=== PATIENT | female | born 1975 | race Caucasian/White ===

== ENCOUNTER 2016-11-18 16:53 | Observation (INO) | payer OTHER ==
[~2016-11-18] VITALS: Ht 147.3 cm; Wt 55.8 kg
[2016-11-18 17:00] VITALS: BP 124/78; PULSE 88; RESP 16; O2SAT 100
--- NOTE | 2016-11-18 18:03 | ED.REPORT ---
HPI-General Illness Date of Service Nov 18, 2016 ED Provider: Lobo Aponte MD A 40 year old female presents to the ED complaining of a headache that became increasingly worse a few days ago. Patient had a Brain MRI taken earlier today at [facility] and was sent here for an MRA after radiology discovered a dissected carotid artery. She took one Aspirin earlier this evening with no relief and is currently complaining of a headache. Patient reports that approx. 1 month ago she had an episode of left sided facial droop, dysphasia and left sided numbness that lasted 5 minutes. 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 Following the episode, she began to experience fatigue, lightheadedness, dizziness and constant daily headaches. Nursing Notes Stated Complaint: MRI Chief Complaint: Neuro Symptoms/ Deficits Nursing Notes Reviewed: Yes Allergies: Coded Allergies: Penicillins (Unverified Allergy, Unknown, 11/18/16) Uncoded Allergies: PENICILLIN (Allergy, Unknown, 11/18/16) Scheduled PRN Alprazolam (Alprazolam) 0.5 Mg Tablet 0.5 MG PO BID PRN PRN For Anxiety Clonazepam (Clonazepam) 1 Mg Tablet 1 MG PO BID PRN PRN For Anxiety General Time Seen by MD: 18:00 Chief Complaint Headache Hx Obtained From: Patient Arrived By: Walk-in Sudden in Onset?: No Onset Occurred: 3 days ago Symptom Duration: Since onset Location: : Head Quality: Aching Severity: Current: Moderate Severity: Maximum: Moderate Associated with: Reports: Dizziness, Headache, Numb extremities, Weakness Pertinent Negative: Pt denies other symptoms Recent Healthcare: Recent doctor visit, Recent hospitalization Past Medical History Past Medical History Notes: PCP: Marco Antonio CARLIN brunilda KEARNEY Past Medical History None reported. Past Surgical History Reports: Hysterectomy Family History Reports: Coronary artery disease, Diabetes mellitus, Hypertension, Denies: Stroke Reports: Cancer Smoking History Never Smoker Social History Other Social History: Good social support, Ambulatory Status Independent Review of Systems Full Review of Systems Constitutional: Reports: Fatigue, Denies: Chills, Fever Respiratory: Denies: Shortness of breath Cardiovascular: Denies: Chest pain GI: Denies: Abdominal pain, Nausea, Vomiting Neurologic: Reports: Dizziness, Headache, Lightheaded, Numbness, Unable to speak (During episode 1 month prior ), Weakness (left sided droop 1 month ago ) , Denies: Change LOC Complete sys rev & neg: except as marked. Physical Exam Vital Signs Vital Signs Date Time Temp Pulse Resp B/P Pulse Ox O2 Delivery O2 Flow Rate FiO2 11/18/16 17:00 36.1 88 16 124/78 100 Room Air Initial VS: Reviewed Skin: Warm, Dry, No cyanosis Neurologic: Alert, Oriented, Nonfocal Psychiatric: Mood/affect normal, Behavior normal, Normal thought content General/Constitutional: Awake, Alert Head / Eyes: Atraumatic, Normocephalic, PERRL, EOMI HEAD/EYES: Subtle left sided facial droop with forehead involved Neck: Atraumatic, Supple, No carotid bruit Respiratory / Chest: Atraumatic, Breath sounds NL, Breath sounds = bilat Cardiovascular: Heart rate NL, Regular rhythm, Heart sounds NL, No gallop, No murmurs, No rubs Abdomen: Atraumatic Upper Extremities Upper Extremity / MS: Atraumatic, Neurologic intact, Vascular intact Lower Extremity / Pelvis / MS: Atraumatic, Neurologic intact, Vascular intact Interpretation & Diagnostics MRI BRAIN w/o contrast [facility] 11/18/16 0900 IMPRESSION: 1. Circumferential but eccentric T1 hyperintense hematoma along the visualized distal cervical left ICA with significant (at least 50-60%) narrowing of the left ICA flow-void compatible with recent acute/subacute dissection of the distal left ICA. 2. No acute infarct, intracranial hemorrhage, midline shift or hydrocephalus. Dissection does not appear to extend into the petrosal segment of the left ICA. 3. 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 Please also refer to the cervical MR angiography study obtained today showing the extent of the dissection on the left tracking inferiorly almost to the origin of the left internal carotid artery at the bifurcation. Dictated by: Uziel Yao M.D. on 11/18/2016 at 20:54 Approved by: Uziel Yao M.D. on 11/18/2016 at 20:54 ADDENDUM: Findings discussed personally with Dr. Aponte immediately upon completion of the report above. Of interest, the high cervical maximal left internal carotid artery diameter is 8 mm where as the normal appearing high cervical right internal carotid artery is 5 mm. This is due to, presumably, adventitial expansion on the left due to the dissection, with the false and true channel combined. At the same axial level when comparing the normal true channel on the right with the diminutive true channel containing flowing blood on the left there is at least a 67% reduction in caliber on the left. Dictated by: Uziel Yao M.D. on 11/18/2016 at 21:07 Lab Results Interpretation Result Diagram: 11/18/16 1830 Test 11/18/16 18:30 Sodium Level 142mEq/L (134-144) Potassium Level 4.3mEq/L (3.5-5.2) Chloride Level 105mEq/L (97-108) Carbon Dioxide Level 18mmol/L (18-29) Blood Urea Nitrogen 14mg/dL (6-20) Creatinine 0.60mg/dL (0.57-1.00) Estimat Glomerular Filtration Rate 160mL/min (>59) Glucose Level 85mg/dL (60-99) Calcium Level 9.7mg/dL (8.5-10.1) Total Bilirubin 0.2mg/dL (0.0-1.2) Aspartate Amino Transf (AST/SGOT) 24U/L (0-50) Alanine Aminotransferase (ALT/SGPT) 19U/L (0-32) Alkaline Phosphatase 65U/L (25-150) Total Protein 7.7g/dL (6.4-8.4) Albumin 3.8g/dL (3.4-5.0) Re-Eval/Medical Decision Med Decision/Clinical Course 40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 Imaging done earlier today at an outside facility suggested a left internal carotid artery dissection. This is confirmed by imaging here. The patient has had aspirin. I discussed with [facility] neurosurgery and with Dr. Santiago Robertson of neurology here. We will admit her here for observation tonight and neurology consultation in the morning. Aspirin is been started. Time of Eval: 21:05 Patient Status: Condition improved Re-Evaluation/Progress Note: Patient is rechecked. She is informed of her lab results, MRI results and diagnosis. All of the patient's questions are addressed. She agrees with plan to transfer. Time of Eval: 21:49 Patient Status: Condition improved Re-Evaluation/Progress Note: Patient is rechecked. She is informed of the updated treatment plan to admit to [facility]. Patient is able to see her MRI results. All of the patient's questions are addressed. Consultation #1: Referral / Consult Name: Uziel Yao MD Consulted With: Neurology Call Returned at: 18:36 Trader: Will see patient, Agrees with eval, Agrees with plan Note: Recommends head/neck angio Consultation #2: Consulted With: Hospitalist Call Returned at: 21:20 Trader: Agrees with plan Note: [facility] will call-back Consultation #3: Referral / Consult Name: Yusuf JAIN JR., MD Consulted With: Neurology Call Returned at: 21:22 Trader: Will see patient, Agrees with eval, Agrees with plan Note: [place] Dr. Krishna Jain Recommends Aspirin and observation under neurology Consultation #4: Referral / Consult Name: Santiago Robertson MD Consulted With: Neurology Call Returned at: 21:34 Trader: Will see patient, Agrees with eval, Agrees with plan Note: Agrees to consult Consultation #5: Referral / Consult Name: Myriam Soto MD Consulted With: Hospitalist Call Returned at: 22:34 Trader: Will see patient, Agrees with eval, Agrees with plan, Accepts admit Counseled Regarding: Diagnosis, Lab results, Need for admission Discharge & Departure Primary Impression: Dissection of carotid artery Disposition: ADMITTED TO HOSPITAL Discharge Condition All VS Reviewed: Yes Condition: Stable Referrals: Marco Antonio Barriga Attestation Portions of this note were transcribed by Shanice Ellsworth. I, Dr. Aponte personally performed the history, physical exam and medical decision-making; I reviewed and confirmed the accuracy of the information in the transcribed note. Signed by: Shanice Ellsworth, 11/18/16, 2245. copies to: Marco Antonio Barriga Donald L MD Nov 18, 2016 18:03 SHANICE ELLSWORTH Nov 18, 2016 18:16
[2016-11-18] MEDS ORDERED: ALPRAZolam 0.5 mg Tablet PO ONE (19:00)
--- NOTE | 2016-11-18 20:55 | DRSVH ---
PROCEDURE: MRA ANGIOGRAM HEAD WITHOUT CONTRAST ([id number]) INDICATIONS: ? L ICA dissection TECHNIQUE: Noncontrast axial 3-D [id number] MR angiogram, with 3-dimensional maximum intensity projection (M IP) reformats of the internal carotid arteries and posterior circulation then performed. COMPARISON: None. FINDINGS: Image quality: Excellent. Anterior circulation: Right sided internal carotid arteries demonstrate normal size and intraluminal flow signal. In contrast, high cervical and skull base intracranial left internal carotid artery is highly stenosed with an eccentric elevated MR signal surrounding the flowing channel of high signal blood within the internal carotid artery in appearance characteristic of dissection and mild aneurysm al dilatation of the thrombosed false channel. The petrous portion of the internal carotid on the le ft contains a linear filling defect that likely is a extension of the dissection towards the midline. The flow within the paired anterior cerebral arteries is normal and symmetric. The flow within the m iddle cerebral arteries is normal and symmetric. The anterior communicating artery is seen. No sten oses, occlusions, or aneurysms. Posterior circulation: Visualized portions of the vertebral arteries demonstrate normal caliber, and join to form a normal appearing basilar artery. The flow within the posterior cerebral arteries is normal and symmetric. No stenoses, occlusions, or aneurysms. IMPRESSION: A left high cervical and skull base intracranial internal carotid artery dissection appe ars present, with mild aneurysmal dilatation of the [place] vessel with an appearance of thrombosed he morrhage within the false channel and maintenance of flow within the constraints of the constricted t rue channel, including extension of dissection filling defect within the petrous portion of the left internal carotid artery. Please also refer to the cervical MR angiography study obtained today showing the extent of the disse ction on the left tracking inferiorly almost to the origin of the left internal carotid artery at the bifurcation. Dictated by: Uziel Yao M.D. on 11/18/2016 at 20:54 Approved by: Uziel Yao M.D. on 11/18/2016 at 20:54
--- NOTE | 2016-11-18 21:26 | DRSVH ---
PROCEDURE: MRA ANGIOGRAM NECK WITH AND WITHOUT CONTRAST ([id number]) INDICATIONS: ? L ICA dissection. Intracranial MR angiogram also obtained approximately at the same time as this study has documented a definite left internal carotid dissection. That information was immediately discussed with the ordering emergency room physician caring for the patient. TECHNIQUE: Axial and sagittal TruFISP through the neck. Coronal dynamic MRA after the administration of contras t in the arterial and venous phases, with rotating 3-dimensional maximum intensity projection (MIP) r eformats constructed from subtraction images . COMPARISON: [facility], MR, MR ANGIO HEAD WO CON, 11/18/2016, 19:28. NOTE: Dr. Aponte of the emergency room staff has been informed of the presence of the cervical and sk ul base left internal carotid artery dissection at time of this dictation. Please also refer to the intracranial MR angiogram report from that examination, complimentary to this study. FINDINGS: Image quality: Excellent. Carotid system: Great vessels demonstrate a conventional anatomy as they arise from the aortic arch. The origins of the common carotid arteries appear normal. The calibers and courses of the common c arotid arteries are likewise normal. The carotid bifurcations appear normal bilaterally. The right internal carotid artery is widely patent up to the [place]. In contrast, the left internal carotid artery appears focally mildly stenosis approximately 2 cm abov e its origin and then tapers to a smaller caliber with minimal diameter measured at 2-3 mm. This con trasts with approximately 5-6 mm in diameter at the normal appearing right internal carotid artery at the same area. The left internal carotid artery is patent through this narrowed region, but surroun ded by a high T1 signal on axial T1 imaging, characteristic of blood products in this clinical circum stance. The caliber of the dissected left internal carotid artery measures up to 8 mm, due to aneury smal dilatation of the dissected portion of the vessel. The false channel containing blood products measures up to 4-5 mm in maximal thickness. The true channel is displaced posteriorly. This dissect ion extends cephalad through the high cervical portion of the internal carotid artery and extends int o the skull base. Posterior circulation: The origins of the vertebral arteries are unremarkable. The more superior po rtions of the vertebral arteries demonstrate normal course and caliber. Vertebral arteries join to f orm a normal appearing basilar artery. Miscellaneous: Subclavian arteries are patent throughout. Pre-contrast images through the neck demo nstrate no soft tissue abnormalities. IMPRESSION: Left internal carotid artery dissection which has a craniocaudad length of approximately a 5.6 cm, originating only approximately 2 cm above the carotid bifurcation and tracking cephalad in to the skull base course of the internal carotid (features portion). As noted, there is aneurysmal d ilatation measuring up to 8 mm of the internal carotid artery on the left, and the presumed true reed norma is diminutive but patent through the course of the abnormal portion of this vessel. There is no sign of aneurysm leak, or embolus at this time. No adjacent inflammatory process is seen that would suggest presence of mycotic pseudoaneurysm as the underlying cause. No additional abnormality elsewhere is found. These findings were discussed in detail personally with Dr. Aponte, the emergency room physician [place] for the patient. He has immediately contacted [facility] for consultation. The estimate of stenosis included in the report of the imaging study was calculated using the NASCET method Dictated by: Uziel Yao M.D. on 11/18/2016 at 21:25 Approved by: Uziel Yao M.D. on 11/18/2016 at 21:25
[2016-11-18] MEDS ORDERED: Ondansetron 2 mg/mL 2 mL Inj IVPUSH PRN (23:20)
[2016-11-18] MEDS ORDERED: Polyethylene Glycol (PEG) 17 Gm Powder PO PRN (23:20)
[2016-11-18] MEDS ORDERED: Alum-Mag Hydrox-Simeth 30 mL Suspension PO PRN (23:20)
[2016-11-18 23:51] VITALS: BP 110/76; PULSE 84; RESP 18; O2SAT 98
[2016-11-18 23:58] LABS: INR 0.95 ratio
[2016-11-19] MEDS ORDERED: ALPR0.5T8 PO (01:01)
[2016-11-19] MEDS ORDERED: KLO1T PO (01:01)
--- NOTE | 2016-11-19 01:10 | PCM.HPMED ---
Subjective Date of Service Nov 18, 2016 Primary Provider: Admitting Physician: Myriam Soto MD Primary Care Physician: Marco Antonio Barriga Attending Physician: Myriam Soto MD Chief Complaint: Dissection of Left ICA History of Present Illness: A 40 year old female with a history of migraines and anxiety presents to the ED complaining of a headache that became increasingly worse a few days ago. Patient had a Brain MRI earlier today in [place] and was sent here for an MRA after radiology discovered a dissected internal carotid artery. She took one Aspirin earlier this evening with no relief and is currently complaining of a headache. The patient reports that just prior to [place] that she had an episode where she was sitting at the table and acutely lost sensation and motor. During this event she was unable to speak or move but reports that it felt like she had something vibrating under her skin. This episode resolved after 5 minutes, but she still complains of some dysphagia. After [place] she also experienced left sided facial weakness and sensation loss, without sparing of the forehead. 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 She has also experienced a month of constant headache, with new onset fatigue, dizziness, lightheadedness but denies any LOC, slurred or strained speech, vision or hearing changes. Her grandfather had a stroke following ica dissection. Review of Systems: Complete review of symptoms performed. Pertinent positives per HPI; all other systems reviewed and are negative. Allergies Coded Allergies: Penicillins (Unverified Allergy, Unknown, 11/18/16) Uncoded Allergies: PENICILLIN (Allergy, Unknown, 11/18/16) Home Medications Klonopin 0.1 mg PMH Left sided [place] Palsy Migraines Anxiety Surgical History Hysterectomy Family History CAD, DM, HTN, Cancer. Father had RI and quadruple bypass. Grandfather had stroke following a dissection. Social History Hx Alcohol Use: Yes (1-2/month) Hx Substance Use: No Hx Tobacco Use: No Smoking Status: Never Smoker Living Arrangement: with Family Exam Vital Signs Vital Sign - Last Date Time Temp Pulse Resp B/P Pulse Ox O2 Delivery O2 Flow Rate FiO2 11/18/16 17:00 36.1 88 16 124/78 100 Room Air Exam General - Comfortable, sitting upright in bed, NAD HEENT - PEERLA, EOMI. mild left facial droop with mild sensation loss on her left vs right cheek Neck - Supple with full ROM, no tenderness Cardio - RRR, no m/g/r. No carotid bruit appreciated. Distal pulses intact. Lungs - CTA bilaterally, no w/r/r Abd - Soft, NT/ND. +BS. No organomegaly or masses. Extremities - No edema, clubbing, or cyanosis. Skin - no rashes or bruising Psych - Normal affect and responds appropriately. Neuro - A&Ox3. CN 2-12 intact but mild difficulty swallowing. Muscle strength 5/ 5 in all extremities, reflexes normal. Sensation intact through except as noted on face. finger to nose intact; [id number] intact; babinski negative; speech not slurred NIH score of 1 for facial droop Lab and Diagnostics Result Diagram: 11/18/16 1830 X-Rays, CTs and MRIs MRA angiogram neck with and without contrast IMPRESSION: Left internal carotid artery dissection which has a craniocaudad length of approximately a 5.6 cm, originating only approximately 2 cm above the carotid bifurcation and tracking cephalad into the skull base course of the internal carotid (features portion). As noted, there is aneurysmal dilatation measuring up to 8 mm of the internal carotid artery on the left, and the presumed true channel is diminutive but patent through the course of the abnormal portion of this vessel. There is no sign of aneurysm leak, or embolus at this time. No adjacent inflammatory process is seen that would suggest presence of mycotic pseudoaneurysm as the underlying cause. No additional abnormality elsewhere is found. These findings were discussed in detail personally with Dr. Sanchez, the emergency room physician caring for the patient. He has immediately contacted [facility] for consultation. The estimate of stenosis included in the report of the imaging study was calculated using the NASCET method Dictated by: Uziel Yao M.D. 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 Please also refer to the cervical MR angiography study obtained today showing the extent of the dissection on the left tracking inferiorly almost to the origin of the left internal carotid artery at the bifurcation. Dictated by: Uziel Yao M.D. on 11/18/2016 at 20:54 Approved by: Uziel Yao M.D. on 11/18/2016 at 20:54 ADDENDUM: Findings discussed personally with Dr. sanchez immediately upon completion of the report above. Of interest, the high cervical maximal left internal carotid artery diameter is 8 mm where as the normal appearing high cervical right internal carotid artery is 5 mm. This is due to, presumably, adventitial expansion on the left due to the dissection, with the false and true channel combined. At the same axial level when comparing the normal true channel on the right with the diminutive true channel containing flowing blood on the left there is at least a 67% reduction in caliber on the left. Dictated by: Uziel Yao M.D. on 11/18/2016 at 21:07 Assessment & Plan 40 year old female presenting due to headache, recent neurological symptoms, and confirmation of left ICA dissection by MRI and MRA. 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 Robertson and he will see pt tomorrow; requests aspirin daily - Will strictly control blood pressure as needed - Pt kept NPO after 3am until seen by neuro Acute anxiety; present on admission; ongoing - Ativan 0.5 mg IV for anxiety Headache; present on admission; ongoing - Avoid triptans - Tylenol for pain; if needed can use NSAID. - If that fail we will consider opioids, however, very tentatively as we do not want to mask advances in her headache Dispo: Pt admitted for observation pending neuro evaluation at which time a plan for intervention will be more clear Attending Statement I saw Mrs. Barros and examined her. She is discussed with Dr. Phan and my exam findings and plans are as discussed above. Kojo Fay MD, DO Nov 18, 2016 23:27 Myriam Soto MD Nov 19, 2016 03:21
--- NOTE | 2016-11-19 01:53 | NUR ---
Admission Pt arrived to room 3005 alert and orientedx4, pleasant with staff, accompanied by , minor complaints of a head ache. Pt ambulatory and conversing in full sentences. Pt was placed on telemetry and oriented to room, call light, bed and policies. Iv inplace and patent at time of arrival. Pts only symptoms at this time are slight facial asymmetry and droop on the left side of her mouth when she smiles.
[2016-11-19] MEDS ORDERED: ALPRAZolam 0.5 mg Tablet PO PRN (03:20)
[2016-11-19 05:58] VITALS: PULSE 86
[2016-11-19 06:09] VITALS: BP 97/62; PULSE 71; RESP 18; O2SAT 97
[2016-11-19 07:19] LABS: EOSINOPHILS % (AUTO) 4.7 % (0-5); MONOCYTES % (AUTO) 13.5 % (4-12); Mean Corpuscular Hemoglobin 29.5 pg (27.0-35.0); Mean Corpuscular Volume 86.7 fL (81-100); Platelet Count 272 bil/L (150-400)
[2016-11-19] MEDS ORDERED: Influenza (Adult) Vaccine 0.5 mL Syringe IM ONE (08:30)
[2016-11-19 09:20] VITALS: BP 91/59; PULSE 76; RESP 18; O2SAT 97
[2016-11-19 10:23] VITALS: PULSE 75
[2016-11-19 13:20] VITALS: BP 104/71; PULSE 75; RESP 16; O2SAT 99
--- NOTE | 2016-11-19 14:19 | CONS ---
[address] [address] CONSULTATION REPORT PATIENT: AIMEE ZARAGOZA : 1975 MR#: [id number] ADMIT: 11/18/2016 JOB ID: [id number] DATE OF SERVICE: 11/19/2016 NEUROLOGY CONSULTATION: REQUESTING PROVIDER: Lobo Aponte MD CHIEF COMPLAINT: Sudden onset of facial palsy with discovery of a carotid dissection on MRA. The patient is a pleasant 40-year-old right-handed woman with a past medical history of asthma who presents for evaluation after a MRI of her brain revealed evidence of a carotid dissection. She reports that approximately around [place] she experienced a transient episode lasting 5-10 minutes described as a throbbing or humming sensation involving both her upper and lower extremities. She reports never having similar symptoms in the past. She does report that on November 03 she experienced sudden onset of a headache on the left side of her head followed by a facial droop and difficulty closing her left eye tightly. She reports that she was able to elevate her eyebrows and that her forehead appeared symmetrical in terms of wrinkles and furrowing. She was seen at [facility] and diagnosed with facial palsy and placed on acyclovir and steroids. She reports that her symptoms have improved, however, the left-sided headache has not resolved. She has been taking naproxen at home for this. She was given Tylenol for this here at the hospital. Yesterday I was contacted by her primary care provider, Linus after the discovery of this carotid dissection on MRI. The report states that it is a circumferential but eccentric T1 hyperintense intramural hematoma along the visualized distal cervical left internal carotid artery with significant, that is at least 50%-60% narrowing of the left internal carotid artery flow void compatible with recent acute/subacute dissection of the distal left internal carotid artery. No acute infarct was noted. No intracranial hemorrhage was noted. No midline shift was noted. No hydrocephalus was noted. The dissection does not appear to extend into the petrosal segment of the left internal carotid artery. There was a normal examination of the facial nerve canal and the inner ears. It should be noted that the symptoms of facial palsy occurred on the same side, that is on the left side. There is no myosis or anhydrous noted on the examination today. There is trace ptosis of the left eye noted. The patient reports that her symptoms have significantly improved since November 03, 2016. However, the headaches have persisted. She describes them as throbbing and notes photophobia in the left eye and notes that looking to the left worsens her headaches. FAMILY HISTORY: She reports a family history of a maternal grandfather who also had a carotid dissection at a young age. There is no history consistent with a diagnosis of Marfan syndrome or Raisa-Danlos syndrome. However, it is quite possible that she does have a connective tissue disorder. She herself does not have any symptoms suggestive of the classical characteristics associated with these connective tissue disorders such as being tall and lanky and hyper flexible. REVIEW OF SYSTEMS: A complete review of systems was performed and was remarkable for above noted. PAST MEDICAL HISTORY: Of asthma. No significant past surgical history other than a hysterectomy. She does also report a history of anxiety. Reportedly the same maternal grandfather had a stroke following a carotid dissection. SOCIAL HISTORY: She lives with her and children. Never smoked. Does not do drugs. Drinks 1-2 alcoholic drinks a month at maximum. HOME MEDICATIONS: Klonopin 1 mg up to once daily p.r.n. as needed for anxiety. ALLERGIES: She is allergic to PENICILLIN. LABORATORY STUDIES: WBC of 6.8, hemoglobin 13.5, hematocrit 39.7, platelets of 272. Chemistries: Sodium 142, potassium 4.3, chloride was 105, bicarbonate 18. BUN 14, creatinine 0.60, glucose of 85. LFTs were within normal limits. Cholesterol 171, LDL was 110, HDL 46. Coags: PT was 10.1, INR 0.95, and PTT was 28.9. PHYSICAL EXAMINATION: Temperature 36.7, pulse of 76, respiratory rate of 18, blood pressure 91/59, pulse oximetry 97% on room air. General: She is a well-developed, well-nourished woman in no acute distress. Head: Normocephalic, atraumatic. Neck: Supple. No carotid bruits were auscultated. Chest: Clear to auscultation. Heart: Regular rate and rhythm. Abdomen: Soft, nondistended, nontender. Extremities: No cyanosis, clubbing or edema. NEUROLOGIC EXAMINATION: Mental status: She is awake, alert and oriented x3. Speech clear and fluent with intact comprehension. There was no aphasia. Cranial nerves: Pupils equal, round and reactive to light. Extraocular movements were smooth and conjugate with no evidence of nystagmus. There was mild flattening of the left nasolabial fold. There was a trace degree of ptosis in the left eye. Visual ansari were full to confrontation. Facial sensation was intact to light touch and temperature. Auditory sensation was intact to finger rub. Palatal elevation was symmetrical. Tongue was midline. Sternocleidomastoid and trapezii were 5/5 bilaterally. Facial sensation was mildly reduced to light touch and temperature over the left side of her face involving the left cheek. Motor: Normal tone and bulk. Muscle strength 5/5 throughout bilaterally. Sensation: Intact to light touch and temperature. Deep tendon reflexes 2+ and symmetrical. Plantars flexor bilaterally. Coordination: Finger to nose was intact without evidence of dysmetria. Gait was deferred. She was given an NIH stroke scale of 2 for mild flattening of the left nasolabial fold as well as mildly diminished sensation to light touch and temperature involving the left side of her face, that is, the left cheek. Here a MRA was performed, which demonstrated a left internal carotid artery dissection which has a craniocaudad length of approximately 5.6 cm originating only approximately 2 cm above the carotid bifurcation and tracking cephalad into the skull base course of the internal carotid, that is the petrous portion. As noted, there is aneurysmal dilatation measuring up to 8 mm of the internal carotid artery on the left and the presumed true channel is diminutive but patent through the course of the abnormal portion of this vessel. There is no sign of aneurysmal leak, or embolus at this time. No adjacent inflammatory process is seen that would suggest the presence of a mycotic pseudoaneurysm as the underlying cause. No additional abnormality elsewhere was noted. The high cervical maximum of internal carotid artery diameter is 8 mm whereas the normal appearing high cervical right internal carotid artery diameter is 5 mm. This is due to presumably adventitial expansion on the left due to the dissection with the false and true channel combined. At the same axial level when compared, the normal true channel on the right with the diminutive true channel containing flowing on the left, there is at least a 67% reduction in caliber on the left. A left high cervical and skull-base intracranial internal carotid artery dissection appears present with mild aneurysmal dilatation of the needed vessel with appearance of thrombosed hemorrhage within the false channel and maintenance of flow within the constraints of the constricted true channel, including extension of dissection filling defect within the petrous portion of the left internal carotid artery. It does track on the left inferiorly almost to the origin of the left internal carotid artery at the bifurcation. IMPRESSION: 1. Sudden onset of left facial weakness and reduced left facial sensation on November 03, 2016 which has since improved. 2. Headache on the left side of her head behind her left eye involving the left mosque. 3. Left internal carotid artery dissection. RECOMMENDATIONS: I discussed this case in detail with Dr. Rangel of [facility]. Given that the magnetic resonance imaging study of the brain did not demonstrate any evidence of a stroke, recommend a combination of aspirin 81 mg plus Plavix 75 mg for three months and then reimage her neck with a magnetic resonance angiogram of the head and neck. If there is persistence of symptoms, may continue for an additional three months. I discussed this case in detail with Dr. Rangel of [facility]. No indication based on the clinical history and examination for an intervention such as the placement of a stent or any surgical intervention. I recommend avoiding heavy lifting. I recommend follow up with primary care provider within one week. I do recommend follow up with me in the Neurology Clinic. An appointment can be made by calling [phone]. I recommend avoiding any rapid head movements or heavy lifting. We did discuss potential side effects of aspirin 81 mg and Plavix 75 mg including an increased risk of bleeding. The patient reports that she can ambulate without any difficulty. I reviewed side effects in detail. The patient's was at the bedside. We discussed this in detail with him as well. His name is Enoch. Questions were sought and answered. The patient expressed understanding. Patient education was provided. Thank you, again, , for allowing me to participate in the care of your patient. I also contacted Dr. Tsai with recommendations. Please feel free to contact me with any questions or concerns.
--- NOTE | 2016-11-19 15:10 | NUR ---
Social Work-screening: Data:EMR reviewed. Pt is a 40 y/o female who was admitted on 11/18/16 for left internal carotid per H&P. Pt's insurance is [employer] and PCP is Marco Antonio Barriga. EMR reviewed. Pt's readmission score is 0. Pt resides at home with her where she remains independent with ADLs. Pt has been up independent in her room. Neurology to come and see pt. No anticipated discharge needs. SW will continue to follow if needs arise. Assessment:pt who is independent at baseline. Plan:Pt to discharge home when medically stable via POV. No anticipated discharge needs. SW will continue to follow if needs arise. NEEMA Salamanca
--- NOTE | 2016-11-19 17:06 | PCM.DIMED ---
Discharge Instructions Date of Service Nov 19, 2016 Dates of Hospitalization Nov 18, 2016 at 22:49 Discharge Diagnosis Discharge Diagnosis Left Internal Carotid Artery Dissection Diet Heart Healthy Activity Other (No lifting over 5 pounds until otherwise cleared by Neurology) Call your provider Fever or Chills, Shortness of breath, Bleeding, Chest pain, Vomitting, Excessive diarrhea, Weakness (unilateral), Other Patient Instructions Follow-up Provider: Santiago Robertson MD Follow-up with PCP in: 2 weeks Rafael Tsai MD Nov 19, 2016 17:06
[2016-11-19] MEDS ORDERED: SENN-133 PO (17:08)
[2016-11-19] MEDS ORDERED: Aspirin-Expunged Drug, Do Not Renew! PO (17:08)
[2016-11-19] MEDS ORDERED: CLOP75TA28 PO (17:08)
--- NOTE | 2016-11-19 18:25 | NUR ---
Discharge Pt discharged at this time. VSS, no complains of increased pain, IV D/Cd intact, tele monitor removed. All belongings gathered and returned to pt. Discharge packet printed and reviewed with pt and spouse. Pt declined offer of wheelchair. Pt escorted from [facility] to elevator by this RN, layo bo, to be transported home in private vehicle driven by spouse
--- NOTE | 2016-11-19 21:59 | PCM.DC.MED ---
Discharge Summary Date of Service Nov 19, 2016 Dates of Hospitalization Date of Hospital Admission Nov 18, 2016 at 22:49 Date of Discharge: Nov 19, 2016 Providers: Admitting Physician: Myriam Soto MD Primary Care Physician: Marco Antonio Barriga Attending Physician: Myriam Soto MD Diagnosis at Time of Discharge Diagnosis at Time of Discharge Left Internal Carotid Artery Dissection Consultations Dr. Santiago Tipton of neurology. Procedures XRay, CTs & MRIs MRA angiogram neck with and without contrast IMPRESSION: Left internal carotid artery dissection which has a craniocaudad length of approximately a 5.6 cm, originating only approximately 2 cm above the carotid bifurcation and tracking cephalad into the skull base course of the internal carotid (features portion). As noted, there is aneurysmal dilatation measuring up to 8 mm of the internal carotid artery on the left, and the presumed true channel is diminutive but patent through the course of the abnormal portion of this vessel. There is no sign of aneurysm leak, or embolus at this time. No adjacent inflammatory process is seen that would suggest presence of mycotic pseudoaneurysm as the underlying cause. No additional abnormality elsewhere is found. These findings were discussed in detail personally with Dr. Sanchez, the emergency room physician caring for the patient. He has immediately contacted [facility] for consultation. The estimate of stenosis included in the report of the imaging study was calculated using the NASCET method Dictated by: Uziel Yao M.D. on 11/18/2016 at 21:25 MRI Head IMPRESSION: A left high cervical and skull base intracranial internal carotid artery dissection appears present, with mild aneurysmal dilatation of the [place] vessel with an appearance of thrombosed hemorrhage within the false channel and maintenance of flow within the constraints of the constricted true channel, including extension of dissection filling defect within the petrous portion of the left internal carotid artery. Please also refer to the cervical MR angiography study obtained today showing the extent of the dissection on the left tracking inferiorly almost to the origin of the left internal carotid artery at the bifurcation. Dictated by: Uziel Yao M.D. on 11/18/2016 at 20:54 Approved by: Uziel Yao M.D. on 11/18/2016 at 20:54 ADDENDUM: Findings discussed personally with Dr. sanchez immediately upon completion of the report above. Of interest, the high cervical maximal left internal carotid artery diameter is 8 mm where as the normal appearing high cervical right internal carotid artery is 5 mm. This is due to, presumably, adventitial expansion on the left due to the dissection, with the false and true channel combined. At the same axial level when comparing the normal true channel on the right with the diminutive true channel containing flowing blood on the left there is at least a 67% reduction in caliber on the left. Dictated by: Uziel Yao M.D. on 11/18/2016 at 21:07 Brief History A 40 year old female with a history of migraines and anxiety presents to the ED complaining of a headache that became increasingly worse a few days ago. Patient had a Brain MRI earlier today in [place] and was sent here for an MRA after radiology discovered a dissected internal carotid artery. She took one Aspirin earlier this evening with no relief and is currently complaining of a headache. The patient reports that just prior to that she had an episode where she was sitting at the table and acutely lost sensation and motor. During this event she was unable to speak or move but reports that it felt like she had something vibrating under her skin. This episode resolved after 5 minutes, but she still complains of some dysphagia. After Bridgett she also experienced left sided facial weakness and sensation loss, without sparing of the forehead. 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 She has also experienced a month of constant headache, with new onset fatigue, dizziness, lightheadedness but denies any LOC, slurred or strained speech, vision or hearing changes. Her grandfather had a stroke following ica dissection. Patient was admitted to the hospital service for further evaluation and treatment. Hospital Course 40 year old female presenting due to headache, recent neurological symptoms, and confirmation of left ICA dissection by MRI and MRA. ICA Dissection; present on admission; ongoing - Pt had left sided facial weakness last month that was diagnosed as [place] Palsy and remitted in 5 minutes; Pt complains today of headache - MRA confirms thrombosed pseudolumen and stable dissection - Pt was given aspirin in ED; continue daily - ED contacted Dr. Robertson and he has seen the patient and recommends that the patient take a 3 month course of aspirin and Plavix. - Will strictly control blood pressure as needed Acute anxiety; present on admission; ongoing - Ativan 0.5 mg IV for anxiety Headache; present on admission; ongoing - Avoid triptans - Tylenol for pain Disposition: Dr. Santiago Robertson has seen and evaluated the patient and discussed the case with physicians at [facility] according to the radiologist report. Dr. Robertson has spoken to me it is recommended that the patient be discharged home on aspirin 325 mg by mouth daily and Plavix 75 mg by mouth daily and to follow-up in his office. He recommends the patient remain on aspirin and Plavix for 3 months. Exam Vital Signs (Last) Date Time Temp Pulse Resp B/P Pulse Ox O2 Delivery O2 Flow Rate FiO2 11/19/16 13:20 36.7 75 16 104/71 99 Room Air Exam General: Patient is in distress lying supine in bed with her head elevated approximately 45. HEENT: Head is atraumatic normocephalic. Eyes: Pupils are equally round and reactive to light and accommodation. Extraocular muscles are intact. Sclera are white anicteric. Subconjunctival mucosa is pink. Ears and nose are unremarkable. Oropharynx: There is no mucosal lesions, there is no thrush, there is no pharyngitis. Neck: Is supple, there are no nodes, or masses or tenderness. Chest: Is clear to auscultation and percussion. There are no rales, rhonchi, wheezes or rubs. Heart: Rate, rhythm is regular. There is no murmur, rub or gallop. Abdomen: Good bowel sounds are present. Abdomen is soft, nontender, no organomegaly or masses were appreciated. Extremities: Are symmetrical and well perfused. There is no edema, there is no cellulitis, no rash. Neurologic: There are no focal neurological deficits noted. Cranial nerves II through XII are intact. There are no sensory or motor deficits. She has some subjective sensory numbness of the left side of her face. Psychiatric: Patients mood is calm and shows no sign of agitation. Genital: Deferred Rectal: Deferred Test 11/18/16 18:30 11/18/16 23:30 11/19/16 06:28 Sodium Level 142mEq/L (134-144) Potassium Level 4.3mEq/L (3.5-5.2) Chloride Level 105mEq/L (97-108) Carbon Dioxide Level 18mmol/L (18-29) Blood Urea Nitrogen 14mg/dL (6-20) Creatinine 0.60mg/dL (0.57-1.00) Estimat Glomerular Filtration Rate 160mL/min (>59) Glucose Level 85mg/dL (60-99) Calcium Level 9.7mg/dL (8.5-10.1) Total Bilirubin 0.2mg/dL (0.0-1.2) Aspartate Amino Transf (AST/SGOT) 24U/L (0-50) Alanine Aminotransferase (ALT/SGPT) 19U/L (0-32) Alkaline Phosphatase 65U/L (25-150) Total Protein 7.7g/dL (6.4-8.4) Albumin 3.8g/dL (3.4-5.0) Prothrombin Time 10.1sec (8.1-12.5) Prothromb Time International Ratio 0.95ratio Activated Partial Thromboplast Time 28.9sec (22.8-33.0) White Blood Count 6.8th/mm3 (3.8-10.1) Red Blood Count 4.58mil/mm3 (3.90-5.20) Hemoglobin 13.5g/dL (12.0-15.6) Hematocrit 39.7% (35.0-46.0) Mean Corpuscular Volume 86.7fL (81-100) Mean Corpuscular Hemoglobin 29.5pg (27.0-35.0) Mean Corpuscular Hemoglobin Concent 34.0% (32.0-37.0) Red Cell Distribution Width 13.1% (12.3-15.4) Platelet Count 272bil/L (150-400) Neutrophils (%) (Auto) 59.0% (40-74) Lymphocytes (%) (Auto) 21.7% (14-46) Monocytes (%) (Auto) 13.5% (4-12) Eosinophils (%) (Auto) 4.7% (0-5) Basophils (%) (Auto) 1.0% (0-3) Triglycerides Level 75mg/dL (0-149) Cholesterol Level 171mg/dL (100-199) LDL Cholesterol, Calculated 110.000mg/dL (0-99) VLDL Cholesterol 15.000mg/dL HDL Cholesterol 46mg/dL (>39) Cholesterol/HDL Ratio 3.72 (0.0-4.4) Discharge Medications Discharge Medications ([Aspirin-Expunged Drug, Do Not Renew!]) 325 MG TABLET 325 MG PO DAILY Prescribed by: CAROL TSAI MD Clopidogrel (Clopidogrel) 75 Mg Tablet 75 MG PO DAILY Prescribed by: CAROL TSAI MD As needed Alprazolam (Alprazolam) 0.5 Mg Tablet 0.5 MG PO BID PRN PRN For Anxiety ( Reported) Clonazepam (Clonazepam) 1 Mg Tablet 1 MG PO BID PRN PRN For Anxiety (Reported) Sennosides (Senna) 8.6 Mg Tablet 17.2 MG PO BID PRN PRN For Constipation Prescribed by: CAROL TSAI MD Followup Plan Disposition: Patient is being discharged home with her . Discharge Diet: Heart Healthy Discharge Activity: Other (No lifting over 5 pounds until otherwise cleared by Neurology) Follow-up Provider: Santiago Robertson MD Follow-up with PCP in: 2 weeks Time spent Time spent on discharging this patient was greater than 35 minutes , over half of which was involved in counseling and coordination of care. Rafael Tsai MD Nov 19, 2016 21:59
== END 2016-11-19 18:32 | disposition home or self-care (01) ==
LOC: SED 16:53 → MPC 22:49
PROVIDERS: ADMIT Family Medicine; ATTEND Family Medicine
DX: I77.71 Dissection of carotid artery (principal); R51 Headache; F41.9 Anxiety disorder, unspecified; G51.0 Bell's palsy
CPT/HCPCS: 36415; 70544; 70549; 80053; 80061; 85025; 85610; 85730; 99285; A9585; G0378